=== PATIENT | male | born 1995 | race African-American/Black ===

== ENCOUNTER 2017-05-23 21:43 | Emergency (ER) | payer MEDICAID, OTHER ==
[~2017-05-23] VITALS: Ht 172.7 cm; Wt 62.5 kg
[2017-05-23 22:09] VITALS: Ht 172.7 cm; Wt 62.5 kg
[2017-05-23] MEDS ORDERED: OLAN5TAB5 PO (22:34)
--- NOTE | 2017-05-23 23:19 | ERD ---
ER Documentation Chief Complaint Date/Time DATE: 05/23/17 TIME: 23:17 Chief Complaint needs psych med refill HPI 21 yo male with a history of bipolar disorder comes to the ER for a medication refill for xyprexa. He states that he takes Zyprexa daily, he takes it before bed. He takes of her bipolar disorder and ran out of his refill a week ago. He denies SI or HI. He has no medical complaints. ROS All systems reviewed and are negative except as per history of present illness. Medications Home Meds Active Scripts Olanzapine* (Zyprexa*) 5 Mg Tablet, 5 MG PO DAILY, #30 TAB Prov:AKRL BARBOSA PA-C 05/23/17 Allergies Allergies: Coded Allergies: amoxicillin (Verified Allergy, Unknown, 05/23/17) PMhx/Soc History of Surgery: No Anesthesia Reaction: No Hx Neurological Disorder: No Hx Respiratory Disorders: No Hx Cardiac Disorders: No Hx Psychiatric Problems: Yes (Psych problems, anxiety) Hx Miscellaneous Medical Probl: No Hx Alcohol Use: No Hx Substance Use: No Hx Tobacco Use: No Smoking Status: Never smoker Physical Exam Vitals Vital Signs Date Time Temp Pulse Resp B/P Pulse Ox O2 Delivery O2 Flow Rate FiO2 05/23/17 22:09 97.7 86 20 119/72 97 Physical Exam General: Well-developed, well-nourished. The patient appears in no acute distress. HEENT: Head is normocephalic, atraumatic. No scleral icterus. Neck: Supple. Nontender. Lungs: Clear to auscultation. Normal air movement. Heart: Regular rate and rhythm. S1 and S2 are normal. No murmurs, gallops, or rubs. Abdomen: Nondistended. Extremities: No clubbing or cyanosis. Moving extremities x 4. No weakness. Neurologic: Alert and oriented 3. No focal deficits. Normal speech and gait. Skin: Normal turgor. No rash or lesions. Procedures/MDM 21-year-old male comes emergency room for medication refill for Zyprexa. Patient will be given a short course however he states that he does not have a regular provider that sees him. He will get be given 1 month supply, was given a list of facilities to follow. He does not warrant any emergent psychiatric evaluation or hospitalization at this time. Departure Diagnosis: Primary Impression: Bipolar disorder Additional Impression: Encounter for medication refill Condition: Good Patient Instructions: Bipolar Disorder Referrals: [facility] YOU HAVE RECEIVED A MEDICAL SCREENING EXAM AND THE RESULTS INDICATE THAT YOU DO NOT HAVE A CONDITION THAT REQUIRES URGENT TREATMENT IN THE EMERGENCY DEPARTMENT. FURTHER EVALUATION AND TREATMENT OF YOUR CONDITION CAN WAIT UNTIL YOU ARE SEEN IN YOUR DOCTORS OFFICE WITHIN THE NEXT 1-2 DAYS. IT IS YOUR RESPONSIBILITY TO MAKE AN APPOINTMENT FOR FOLOW-UP CARE. IF YOU HAVE A PRIMARY DOCTOR --you should call your primary doctor and schedule an appointment IF YOU DO NOT HAVE A PRIMARY DOCTOR YOU CAN CALL OUR PHYSICIAN REFERRAL HOTLINE AT IF YOU CAN NOT AFFORD TO SEE A PHYSICIAN YOU CAN CHOSE FROM THE FOLLOWING [facility] [address] [facility] Medical [facility]. [facility] [address] [facility] [facility] [address] [facility]. [facility] [address] [facility] [address] [facility] [address] [facility]. [facility] [address] [facility]. [facility] YOU HAVE RECEIVED A MEDICAL SCREENING EXAM AND THE RESULTS INDICATE THAT YOU DO NOT HAVE A CONDITION THAT REQUIRES URGENT TREATMENT IN THE EMERGENCY DEPARTMENT. FURTHER EVALUATION AND TREATMENT OF YOUR CONDITION CAN WAIT UNTIL YOU ARE SEEN IN YOUR DOCTORS OFFICE WITHIN THE NEXT 1-2 DAYS. IT IS YOUR RESPONSIBILITY TO MAKE AN APPOINTMENT FOR FOLOW-UP CARE. IF YOU HAVE A PRIMARY DOCTOR --you should call your primary doctor and schedule and appointment IF YOU DO NOT HAVE A PRIMARY DOCTOR YOU CAN CALL OUR PHYSICIAN REFERRAL HOTLINE AT . IF YOU CAN NOT AFFORD TO SEE A PHYSICIAN YOU CAN CHOSE FROM THE FOLLOWING [facility]: [facility] [address] [place] [address] [facility] [address] [place] [address] [facility] [address] [place] [address] [facility] URGENT CARE/SPECIALTIES Additional Instructions: Call your primary care doctor TOMORROW for an appointment during the next 1-2 days.See the doctor sooner or return here if your condition worsens before your appointment time. KARL BARBOSA PA-C May 23, 2017 23:19
[2017-05-24] MEDS ORDERED: OLAN15TA3 PO (06:02)
== END 2017-05-23 23:44 | disposition home or self-care (01) ==
LOC: FTE 21:43
DX: F31.9 Bipolar disorder, unspecified (principal)
CPT/HCPCS: 99281

== ENCOUNTER 2017-05-24 05:19 | Emergency (ER) | payer MEDICAID ==
[~2017-05-24] VITALS: Ht 180.3 cm; Wt 62.5 kg
[~2017-05-24 05:19] MED LIST: OLAN5TAB5 PO
[2017-05-24 05:22] VITALS: Ht 180.3 cm; Wt 62.5 kg
[2017-05-24] MEDS ORDERED: OLAN15TA3 PO (06:02)
--- NOTE | 2017-05-24 06:25 | ERD ---
ER Documentation Chief Complaint Date/Time DATE: 05/24/17 TIME: 06:24 Chief Complaint pt's mom at side; pt verbalizing i have "mental health issues" HPI 21-year-old male history of bipolar disorder who presents to the emergency room for medication refill. The patient was seen here within the last 12 hours and given a prescription for Zyprexa however it was for 5 mg instead of 15 mg. The patient has had a recent psychiatric evaluation and was prescribed Zyprexa but did not receive her prescription. The patient has stable bipolar disorder he denies any suicidal or homicidal thoughts. He is here with his mother. No other complaints. ROS All systems reviewed and are negative except as per history of present illness. Medications Home Meds Active Scripts Olanzapine* (Zyprexa*) 15 Mg Tablet, 15 MG PO QPM, #30 TAB Prov:CHERYL YAN MD 05/24/17 Olanzapine* (Zyprexa*) 5 Mg Tablet, 5 MG PO DAILY, #30 TAB Prov:KARL BARBOSA PA-C 05/23/17 Allergies Allergies: Coded Allergies: amoxicillin (Verified Allergy, Unknown, 05/23/17) PMhx/Soc History of Surgery: No Anesthesia Reaction: No Hx Neurological Disorder: No Hx Respiratory Disorders: No Hx Cardiac Disorders: No Hx Psychiatric Problems: Yes (Psych problems, anxiety,bipolar) Hx Miscellaneous Medical Probl: No Hx Alcohol Use: No Hx Substance Use: No Hx Tobacco Use: No Smoking Status: Never smoker Physical Exam Vitals Vital Signs Date Time Temp Pulse Resp B/P Pulse Ox O2 Delivery O2 Flow Rate FiO2 05/24/17 05:22 98.0 80 18 137/91 95 Physical Exam General: Well developed, well nourished, no acute distress Head: Normocephalic, atraumatic. Eyes: EOM intact ENT: Moist mucous membranes Neck: Full ROM Respiratory: No respiratory distress Cardiovascular: Good capillary refil Abdominal: Nondistended : Deferred MSK: No edema, no unilateral swelling, 5/5 strength Neurologic: Alert and oriented, moving all extremities, normal speech, steady gait Skin: No rash Psych: Odd affect, slightly labile mood, no suicidal thoughts no homicidal thoughts Procedures/MDM The patient is here for medication refill. He received the wrong prescription of Zyprexa for 5 mg instead of 15 mg. I will correct this prescription and the patient can be safely discharged. He exhibits no signs of acute psychosis. He has good outpatient follow-up. He is here with his mother. We discussed follow up with the patient's primary care doctor within 24 to 48 hours as needed. We also discussed return to the emergency room for worsening symptoms or worsening condition. Outpatient referral: [None required] Discharge Medications: Zyprexa 15 mg in the evening a total of 30 tablets Departure Diagnosis: Primary Impression: Encounter for medication refill Condition: Good Patient Instructions: Taking Medicine Safely Referrals: [facility] YOU HAVE RECEIVED A MEDICAL SCREENING EXAM AND THE RESULTS INDICATE THAT YOU DO NOT HAVE A CONDITION THAT REQUIRES URGENT TREATMENT IN THE EMERGENCY DEPARTMENT. FURTHER EVALUATION AND TREATMENT OF YOUR CONDITION CAN WAIT UNTIL YOU ARE SEEN IN YOUR DOCTORS OFFICE WITHIN THE NEXT 1-2 DAYS. IT IS YOUR RESPONSIBILITY TO MAKE AN APPOINTMENT FOR FOLOW-UP CARE. IF YOU HAVE A PRIMARY DOCTOR --you should call your primary doctor and schedule an appointment IF YOU DO NOT HAVE A PRIMARY DOCTOR YOU CAN CALL OUR PHYSICIAN REFERRAL HOTLINE AT IF YOU CAN NOT AFFORD TO SEE A PHYSICIAN YOU CAN CHOSE FROM THE FOLLOWING [facility] [address] [facility]. [facility] [address] [facility]. [facility] [address] [facility]. [facility] [address] [facility]. [facility] [address] [facility]. [facility]. [address] [facility]. [facility] YOU HAVE RECEIVED A MEDICAL SCREENING EXAM AND THE RESULTS INDICATE THAT YOU DO NOT HAVE A CONDITION THAT REQUIRES URGENT TREATMENT IN THE EMERGENCY DEPARTMENT. FURTHER EVALUATION AND TREATMENT OF YOUR CONDITION CAN WAIT UNTIL YOU ARE SEEN IN YOUR DOCTORS OFFICE WITHIN THE NEXT 1-2 DAYS. IT IS YOUR RESPONSIBILITY TO MAKE AN APPOINTMENT FOR FOLOW-UP CARE. IF YOU HAVE A PRIMARY DOCTOR --you should call your primary doctor and schedule and appointment IF YOU DO NOT HAVE A PRIMARY DOCTOR YOU CAN CALL OUR PHYSICIAN REFERRAL HOTLINE AT . IF YOU CAN NOT AFFORD TO SEE A PHYSICIAN YOU CAN CHOSE FROM THE FOLLOWING [facility] INSTITUTIONS: [facility] [address] [place] [address] [facility] [address] [place] [address] [facility] [address] [place] [address] Additional Instructions: Call your primary care doctor TOMORROW for an appointment during the next 1 WEEK.Tell the executive secretary social welfare that you were referred from this facility.See the doctor sooner or return here if your condition worsens before your appointment time. CHERYL YAN MD May 24, 2017 06:25
== END 2017-05-24 06:14 | disposition home or self-care (01) ==
LOC: E/R 05:19
DX: Z76.0 Encounter for issue of repeat prescription (principal); R40.2142 Coma scale, eyes open, spontaneous, at arrival to emergency department; R40.2252 Coma scale, best verbal response, oriented, at arrival to emergency department; R40.2362 Coma scale, best motor response, obeys commands, at arrival to emergency department
CPT/HCPCS: 99281